=== PATIENT | male | born 1965 | race Caucasian/White ===

== ENCOUNTER → 2018-12-04 | Outpatient (CLI) | payer OTHER ==
[~2018-12-04] MED LIST: ASPIRIN 81M81 MG/TA2 PO; BUFFERED ASPIR325 M1 PO; CLOPIDOGREL PO; COREG 6.256.25 MG/TA PO; CRESTOR20 MG PO; CRESTOR40 MG PO; IMDUR 30MG30 MG/TAB PO; LISINOPRIL10 MG PO; NITROQUICK0.4 MG SL; PLAVIX 75MG TAB75 MG PO; ZESTRIL 10MG10 MG PO; ZOCOR 20MG20 MG PO
== END ==
LOC: COL.RAD 08:50
DX: M47.27 Other spondylosis with radiculopathy, lumbosacral region (principal); M48.07 Spinal stenosis, lumbosacral region; M43.16 Spondylolisthesis, lumbar region

== ENCOUNTER → 2022-02-13 | Outpatient (RCR) | payer OTHER | END | disposition home or self-care (01) | LOC: COL.CR | DX: Z48.812 Encounter for surgical aftercare following surgery on the circulatory system (principal); Z95.1 Presence of aortocoronary bypass graft; I25.2 Old myocardial infarction ==